=== PATIENT | female | born 1980 | race Caucasian/White ===

== ENCOUNTER 2022-03-31 22:26 | Emergency (ER) | payer OTHER, SELFPAY ==
[2022-03-31 22:41] VITALS: BP 134/89; PULSE 104; RESP 16; TEMP 36.3; O2SAT 100; BMI 18.5
[2022-04-01 00:40] VITALS: BP 124/79; PULSE 89; RESP 16; TEMP 36.3; O2SAT 100
--- NOTE | 2022-04-01 12:30 | ED.EAR ---
HPI - Ear Problem General Chief complaint: Ear/Nose/Throat Problem Stated complaint: right ear bleeding Time Seen by Provider: 03/31/22 23:23 Source: patient, RN notes reviewed and old records reviewed Mode of arrival: ambulatory Limitations: no limitations History of Present Illness HPI Narrative: 41-year-old woman presenting to the emergency department with concern of bleeding from her right ear. She has had some head cold symptoms here recently and is remaining a little congested. Today though started to have more ear discomfort and crackling noises and then the blood was dripping from her ear. Admittedly feels better now. She has not had fever. No purulent drainage. She has been swimming. Treatment with cough drops lately. No history of sinus problems. Called into triage and recommended to be seen. Related Data Home Medications Medication Instructions Recorded Confirmed No Known Home Medications 03/31/22 03/31/22 Allergies Allergy/AdvReac Type Severity Reaction Status Date / Time No Known Drug Allergies Allergy Verified 03/31/22 22:45 Review of Systems Status of ROS: Reports: 6 or more systems reviewed and unremarkable except as noted in History and below PFSH PFS Social History Smoking Status: Never smoker Second hand tobacco smoke exposure: Yes How often do you have a drink containing alcohol: monthly or less AUDIT-C Alcohol total score: 1 Non-prescribed substance use: denies use Exam Narrative: Exam Narrative: I pleasant. Good energy. NAD. Sounds a little bit congested. HEENT sound slightly congested as noted. No facial swelling erythema or tenderness. Neck is supple without LA. left TM is unremarkable. Right ear slight tenderness to movement of the tragus. She does have small amount of dried blood in the dependent area of the ear canal. There is a blood blister occupying about a 5th of the tympanic membrane in the lower left or inferior posterior quadrant/7 o'clock position. Will retraction otherwise. Good light reflex and transparent TM. Oropharynx is unremarkable. Is breathing easily. No coughing. Const: Vital Signs, click to edit/add: Vital Signs - 24 hr 03/31/22 22:41 04/01/22 00:40 Temperature 97.4 F L 97.4 F L Pulse Rate [Left P ulse Oximeter] 104 H 89 Respiratory Rate 16 16 Blood Pressure [ri ght arm] 134/89 124/79 Pulse Oximetry 100 100 Documenting provider has reviewed patient's vital signs: yes Course Course Hospital Course: Exam as above. Vital Signs Vital signs: Initial Vital Signs Temperature 97.4 F L 03/31/22 22:41 Temperature Source Temporal Artery Scan 03/31/22 22:41 Pulse Rate 104 H 03/31/22 22:41 Pulse Rhythm 03/31/22 22:41 Respiratory Rate 16 03/31/22 22:41 Blood Pressure 134/89 03/31/22 22:41 Blood Pressure Mean 104 03/31/22 22:41 Blood Pressure Position Sitting 03/31/22 22:41 Pulse Oximetry 100 03/31/22 22:41 Oxygen Delivery Method 03/31/22 22:41 Vital Signs Temperature 97.4 F L 03/31/22 22:41 Pulse Rate 104 H 03/31/22 22:41 Respiratory Rate 16 03/31/22 22:41 Blood Pressure 134/89 03/31/22 22:41 Pulse Oximetry 100 03/31/22 22:41 Temperature 97.4 F L 04/01/22 00:40 Pulse Rate 89 04/01/22 00:40 Respiratory Rate 16 04/01/22 00:40 Blood Pressure 124/79 04/01/22 00:40 Pulse Oximetry 100 04/01/22 00:40 Medical Decision Making MDM Narrative Medical decision making narrative: She does not appear to have otitis media really. I think this is more of a congestive issue resulting in a hemotympanum/hematotympanum. do not see evidence of otitis externa either I do not see a perforation directly of the tympanic membrane. Ms. Mayo asked whether not she should follow up for recheck: I think this is a good idea. Information was dispensed for local ENT. Meanwhile decongestants for recommended and protection from external liquid/fluid in the ear for the time being. See discharge recommendations Discharge Plan Discharge Clinical Impression: Hemotympanum, Eustachian tube dysfunction Patient Disposition: Home, Self-Care Condition: Stable Additional Instructions: hydrate. Pseudoephedrine might be further helpful with the congestion. if you plan on swimming in the next Couple of weeks, I would definitely plug the ear with wax plug and try to avoid prolonged suppression. Be seen for marked increase in pain, purulent drainage, fever. Yes. Might want to follow up in 1-2 weeks for recheck. See information as dispensed for Dr. Palomino Prescriptions: No Action No Known Home Medications 0RF Follow Up/Referrals: Vishal Perez MD [Primary Care Provider] - Stand Alone Forms: [employer] Info Instructions
== END 2022-04-01 01:02 | disposition home or self-care (01) ==
PROVIDERS: Emergency Provider Family Medicine; PCP Family Medicine
DX: H73.891 Other specified disorders of tympanic membrane, right ear (principal); H69.91 Unspecified Eustachian tube disorder, right ear
CPT/HCPCS: 99282; 99283